=== PATIENT | female | born 1940 | race Caucasian/White ===

== ENCOUNTER 2024-07-23 20:42 | Outpatient (REF) | payer MEDICARE, SELFPAY ==
[2024-07-23 22:00] LABS: Hemoglobin 9.1 g/dL (12.0-16.0)
== END 2024-07-23 20:43 | disposition home or self-care (01) ==
LOC: LAB 20:42
PROVIDERS: PCP Family Medicine; Visit Provider Nurse Practitioner Family
DX: D64.9 Anemia, unspecified (principal)
CPT/HCPCS: 36415; 85018